=== PATIENT | female | born 1980 | race African-American/Black ===

== ENCOUNTER 2017-11-12 08:31 | Emergency (ER) | payer MEDICAID ==
[~2017-11-12] VITALS: Ht 177.8 cm; Wt 65.0 kg
[2017-11-12] MEDS ORDERED: ONDA4TAB5 PO (08:58)
[2017-11-12] MEDS ORDERED: ONDANSETRON HCL 4MG/2ML VIAL IV ONE (09:15)
[2017-11-12 09:42] LABS: BASOPHILS % 0.4 % (0.0-2.0); EOSINOPHILS % 0.3 % (0.0-5.0); HEMATOCRIT. 41.6 % (36.0-48.0); LYMPHOCYTES % 14.8 % (20.0-50.0); MEAN CORPUSCULAR VOLUME 80.4 fL (81.0-99.0); MEAN PLATELET VOLUME 9.8 fl (7.4-10.4); NEUTROPHILS % 80.5 % (40.0-76.0); PLATELET 181 x1000/uL (130-400); RED BLOOD CELL COUNT 5.17 mill/uL (4.2-5.4); RED CELL DISTRIBUTION WIDTH 14.5 % (11.6-14.6)
[2017-11-12 10:00] LABS: CARBON DIOXIDE 27 mEq/L (21-32); CHLORIDE 102 mEq/L (98-107)
[2017-11-12 10:35] LABS: B-HCG QUANTITATIVE 241920 mIU/mL (<3)
[2017-11-12] MEDS ORDERED: SODIUM CHLORIDE 0.9% 1,000 ML IV ONE (11:07)
[2017-11-12 12:41] LABS: CLARITY URINE CLEAR (CLEAR); COLOR URINE DARK YELLOW (YELLOW); KETONES URINE 3+ (NEGATIVE); LEUKOCYTE ESTERASE URINE TRACE (NEGATIVE); NITRITE URINE NEGATIVE (NEGATIVE); OCCULT BLOOD URINE NEGATIVE (NEGATIVE); PH URINE 6.5 (4.5-8.0); PROTEIN URINE TRACE (NEGATIVE); SPECIFIC GRAVITY URINE 1.027 (1.005-1.030)
[2017-11-12] MEDS ORDERED: PYRIDOXINE HCL 50MG TABLET PO ONE (13:00)
[2017-11-12] MEDS ORDERED: ACETAMINOPHEN 325MG TABLET PO ONE (13:15)
[2017-11-12 14:00] VITALS: BP 109/56
== END 2017-11-12 14:13 | disposition home or self-care (01) ==
LOC: ER 08:41
DX: O21.0 Mild hyperemesis gravidarum (principal); O23.41 Unspecified infection of urinary tract in pregnancy, first trimester; Z3A.09 9 weeks gestation of pregnancy; O09.521 Supervision of elderly multigravida, first trimester
CPT/HCPCS: 36415; 76801; 76817; 80053; 81001; 84702; 85025; 86850; 86900; 86901; 96361; 96374; 99285; J2405; J7030; Z7610

== ENCOUNTER 2019-12-03 10:05 | Emergency (ER) | payer MEDICAID ==
[~2019-12-03] VITALS: Ht 165.1 cm; Wt 89.0 kg
[~2019-12-03 10:05] MED LIST: ONDA4TAB5 PO
[2019-12-03 10:12] VITALS: BP 127/66
[2019-12-03] MEDS ORDERED: MECLIZINE 25MG TABLET PO ONE (11:30)
== END 2019-12-03 12:50 | disposition home or self-care (01) ==
LOC: ER 10:05
DX: H61.20 Impacted cerumen, unspecified ear (principal); R42 Dizziness and giddiness
CPT/HCPCS: 99282; J8597